=== PATIENT | male | born 1955 | race Two or more races ===

== ENCOUNTER 2024-01-05 13:52 | Emergency (ER) | payer BC ==
[~2024-01-05] VITALS: Ht 167.6 cm; Wt 70.0 kg
[2024-01-05] MEDS: ONDANSETRON HCL 4MG/2ML INJ IV ONE (14:40)
[2024-01-05] MEDS: FENTANYL CITRATE/PF 50MCG/ML 2ML VIAL IV ONE (14:40)
[2024-01-05 15:52] VITALS: O2SAT 100
[2024-01-05] MEDS: PROPOFOL 200MG/20ML VIAL IV ONE (15:58)
[2024-01-05] MEDS: FENTANYL CITRATE/PF 50MCG/ML 2ML VIAL IV STA (16:01)
[2024-01-05] MEDS ORDERED: HYDR-4001 MT (18:07)
[2024-01-05] MEDS: HYDROCODONE/ACETAMINOPHEN 5/325MG TABLET PO ONE (18:29)
[2024-01-05 18:31] VITALS: BP 104/53; PULSE 67; RESP 19; TEMP 97.8
== END 2024-01-05 18:41 | disposition home or self-care (01) ==
LOC: ER 13:52
DX: S52.122A Displaced fracture of head of left radius, initial encounter for closed fracture (principal); I10 Essential (primary) hypertension; X58.XXXA Exposure to other specified factors, initial encounter; Y93.89 Activity, other specified; Y92.89 Other specified places as the place of occurrence of the external cause; Y99.8 Other external cause status
CPT/HCPCS: 73070; 73080; 24600; 96374; 99152; 99285; J3010; J2405; J2704; Z7610 ×2; A4565